=== PATIENT | female | born 1990 | race Caucasian/White ===

== ENCOUNTER 2018-05-29 04:24 | Emergency (ER) | payer SELFPAY ==
[~2018-05-29] VITALS: Ht 180.3 cm; Wt 133.5 kg
[2018-05-29 04:28] VITALS: BP 136/83
--- NOTE | 2018-05-29 04:28 | NUR ---
TO BED # 09 AMBULATORY, REPORT GIVEN TO LYNDSAY CARROLL
--- NOTE | 2018-05-29 04:40 | NUR ---
PT BIB SELF C/O OF NUMBESS. PT STATES WAS GOING TO BED AFTER BEING AT WORK AT 0130, SUDDEN ONSET OF NUMBESS/TINGLING RADIATING FROM RIGHT FOOT UP TO SIDE OF SIDE; 0/10 PAIN AT THIS TIME; +ICE/HOT FEELING TO LEFT ARM AT THIS TIME. 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 PT ACTING APPROPRIATLY. CHEST RISE AND FALL EQUAL AND UNLABORED. PMH: POLYCYSTIC OVARIAN SYNDROME RX: DENIES
[2018-05-29] MEDS ORDERED: LORazepam 0.5 MG TAB PO ONE (05:10)
[2018-05-29 06:38] LABS: BASOPHILS # (AUTO) 0.1 K/uL (0.00-0.22); BASOPHILS % (AUTO) 0.6 % (0.0-2.0); EOSINOPHILS # (AUTO) 0.5 K/uL (0-0.4); EOSINOPHILS % (AUTO) 3.6 % (0.0-4.0); HEMATOCRIT 38.6 % (36-48); HEMOGLOBIN 12.4 g/dL (12.0-16.0); LYMPHOCYTES # (AUTO) 4.3 K/uL (2.5-16.5); LYMPHOCYTES % (AUTO) 30.6 % (20.5-51.1); MEAN CORPUSCULAR HEMOGLOBIN 27 pg (27-31); MEAN CORPUSCULAR HGB CONC 32 g/dL (33-37); MEAN CORPUSCULAR VOLUME 82.7 fL (80-94); MONOCYTES # (AUTO) 1.2 K/uL (0.8-1.0); MONOCYTES % (AUTO) 8.4 % (1.7-9.3); NEUTROPHILS % (AUTO) 56.8 % (42.2-75.2); PLATELET COUNT (AUTO) 351 K/uL (140-450); RED BLOOD CELL COUNT(AUTO) 4.67 MIL/uL (4.20-5.40); RED CELL DISTRIBUTION WIDTH 14.8 % (11.6-13.7)
[2018-05-29 06:57] LABS: ANION GAP 12.5 (8-16); CARBON DIOXIDE 26.3 mmol/L (21-32); CREATININE 0.7 mg/dL (0.6-1.3); POTASSIUM 3.8 mmol/L (3.5-5.1)
[2018-05-29 07:03] LABS: ALBUMIN 3.3 g/dL (3.4-5.0); TOTAL BILIRUBIN 0.3 mg/dL (0.0-1.0)
--- NOTE | 2018-05-29 07:13 | NUR ---
Pt report given to GLEN Saenz. Transfer of care at this time.
--- NOTE | 2018-05-29 07:23 | NUR ---
SPOKE WITH PT AT BEDSIDE. ADMITS FEELING MUCH BETTER, DENIES FEELING ANXIOUS AT THIS TIME----STATES THIS WAS HER FIRST EPISODE NO ACCESSORY MUSCLE USE NOTED,APPEARS RELAXED HANDS FOLDED IN FRONT OF HER CONTINUES TO WAIT FOR DISPO.
[2018-05-29 07:59] VITALS: BP 136/83
--- NOTE | 2018-05-29 08:00 | NUR ---
Patient discharged with v/s stable. Written and verbal after care instructions given and explained. Patient verbalized understanding. Ambulatory with steady gait. All questions addressed prior to discharge. Advised to follow up with PMD.
== END 2018-05-29 08:00 | disposition home or self-care (01) ==
LOC: MED 04:24
DX: R20.0 Anesthesia of skin (principal)
CPT/HCPCS: 36415; 80053; 85025; 99283